=== PATIENT | female | born 1980 | race African-American/Black ===

== ENCOUNTER 2016-07-24 09:43 | Observation (INO) | payer OTHER, MEDICAID ==
[~2016-07-24] VITALS: Ht 157.5 cm; Wt 93.1 kg
[2016-07-24] MEDS ORDERED: BETAMETHASONE 6 MG/ML, 5ML IM ONE (10:21)
[2016-07-24] MEDS ORDERED: PLEASE ENTER HEIGHT AND WEIGHT MC SCH (10:30)
[2016-07-24] MEDS ORDERED: BETAMETHASONE 6 MG/ML, 5ML IM SCH (10:30)
[2016-07-24 10:32] LABS: HEMOGLOBIN 12.9 g/dL (11.7-16.4)
[2016-07-24 10:43] LABS: ASPARTATE AMINO TRANSFERASE 17 U/L (15-37); BLOOD UREA NITROGEN 6 mg/dL (7-18)
[2016-07-24] MEDS ORDERED: LABETALOL 100 MG TABLET ONE (10:48)
[2016-07-24] MEDS ORDERED: LABETALOL 200 MG TABLET PO SCH (11:00)
[2016-07-24] MEDS ORDERED: LABETALOL 5MG/ML, 20ML IVPush ONE (11:00)
== END 2016-07-24 15:17 | disposition home or self-care (01) ==
LOC: LDOP 09:43 → LDIP 09:59
PROVIDERS: ADMIT Obstetrics & Gynecology; ATTEND Obstetrics & Gynecology
DX: O36.8130 Decreased fetal movements, third trimester, not applicable or unspecified (principal); Z3A.32 32 weeks gestation of pregnancy
CPT/HCPCS: 36415; 59025; 76819; 80053; 81001; 82248; 82570; 84156; 84550; 85025; 87086; 96372; G0378; J0702

== ENCOUNTER 2016-07-31 12:45 | Observation (INO) | payer OTHER, MEDICAID ==
[~2016-07-31] VITALS: Ht 157.5 cm; Wt 94.5 kg
[2016-07-31 13:15] VITALS: BP 147/81
[2016-07-31 13:25] LABS: HEMOGLOBIN 12.8 g/dL (11.7-16.4)
[2016-07-31 13:38] LABS: ASPARTATE AMINO TRANSFERASE 12 U/L (15-37); BLOOD UREA NITROGEN 7 mg/dL (7-18)
[2016-07-31] MEDS: LABETALOL 200 MG TABLET PO SCH ×2 (15:30→22:18)
[2016-07-31] MEDS ORDERED: LABETALOL 100 MG TABLET ONE (15:41)
[2016-07-31] MEDS ORDERED: ACETAMINOPHEN 325 MG TABLET ONE (18:22)
[2016-07-31] MEDS ORDERED: ACETAMINOPHEN 325 MG TABLET PO PRN (18:30)
[2016-07-31 22:37] VITALS: BP 158/92
[2016-07-31] MEDS ORDERED: ZOLPIDEM 10MG TABLET ONE (22:54)
[2016-07-31] MEDS ORDERED: ZOLPIDEM 10MG TABLET PO PRN (23:00)
[2016-08-01] MEDS ORDERED: niFEDipine ER 60 MG TABLET.ER PO STA (05:18)
[2016-08-01] MEDS ORDERED: hydrALAzine 20 MG/ML, 1ML ONE (05:27)
[2016-08-01] MEDS ORDERED: hydrALAzine 20 MG/ML, 1ML IV ONE (06:00)
[2016-08-01] MEDS ORDERED: LACTATED RINGERS 500 ML IV SCH (06:00)
[2016-08-01] MEDS: LABETALOL 200 MG TABLET PO SCH ×2 (06:43→13:41)
[2016-08-01 14:00] LABS: HEMOGLOBIN 12.9 g/dL (11.7-16.4)
[2016-08-01 14:04] LABS: ASPARTATE AMINO TRANSFERASE 12 U/L (15-37); BLOOD UREA NITROGEN 6 mg/dL (7-18)
[2016-08-01] MEDS ORDERED: NIFE60TA2 PO ×2 (18:21→18:23)
[2016-08-01] MEDS ORDERED: LABE200T3 PO (18:22)
[2016-08-02] MEDS ORDERED: niFEDipine ER 60 MG TABLET.ER PO SCH (06:00)
== END 2016-08-01 18:25 | disposition home or self-care (01) ==
LOC: LDOP 12:45 → LDIP 15:31
PROVIDERS: ADMIT Obstetrics & Gynecology; ATTEND Obstetrics & Gynecology
DX: O10.913 Unspecified pre-existing hypertension complicating pregnancy, third trimester (principal); O40.3XX0 Polyhydramnios, third trimester, not applicable or unspecified; O09.523 Supervision of elderly multigravida, third trimester; O99.343 Other mental disorders complicating pregnancy, third trimester; F31.9 Bipolar disorder, unspecified; Z3A.33 33 weeks gestation of pregnancy; Z98.890 Other specified postprocedural states
CPT/HCPCS: 36415; 76819; 80053; 81001; 81050; 82248; 82570; 84156; 84550; 85025; 86850; 86900; 87081; 96374; G0378; J0360

== ENCOUNTER 2016-08-08 09:50 | Outpatient (CLI) | payer OTHER, MEDICAID ==
[~2016-08-08] VITALS: Ht 157.5 cm; Wt 95.9 kg
[~2016-08-08 09:50] MED LIST: LABE200T3 PO; NIFE60TA2 PO
[2016-08-08 10:25] VITALS: BP 134/81
[2016-08-08] MEDS ORDERED: PREN1TAB27 PO (10:43)
== END 2016-08-08 11:15 | disposition home or self-care (01) ==
LOC: LDOP 09:50
PROVIDERS: ATTEND Obstetrics & Gynecology
DX: O09.523 Supervision of elderly multigravida, third trimester (principal); O10.913 Unspecified pre-existing hypertension complicating pregnancy, third trimester; O40.3XX0 Polyhydramnios, third trimester, not applicable or unspecified; O99.513 Diseases of the respiratory system complicating pregnancy, third trimester; J45.909 Unspecified asthma, uncomplicated; O99.343 Other mental disorders complicating pregnancy, third trimester; F32.9 Major depressive disorder, single episode, unspecified; Z3A.35 35 weeks gestation of pregnancy
CPT/HCPCS: 59025; 76819; 99211; G0463

== ENCOUNTER 2016-08-16 03:08 | Inpatient (IN) | payer OTHER, MEDICAID ==
[~2016-08-16] VITALS: Ht 157.5 cm; Wt 96.0 kg
[~2016-08-16 03:08] MED LIST changes: +PREN1TAB27 PO
[2016-08-16] MEDS ORDERED: LABETALOL 5MG/ML, 20ML IVPush ONE (03:15)
[2016-08-16] MEDS ORDERED: LABETALOL 100 MG TABLET ONE (03:22)
[2016-08-16 03:46] LABS: HEMOGLOBIN 12.9 g/dL (11.7-16.4)
[2016-08-16 04:00] LABS: BLOOD UREA NITROGEN 8 mg/dL (7-18)
[2016-08-16 04:04] LABS: ASPARTATE AMINO TRANSFERASE 16 U/L (15-37)
[2016-08-16] MEDS ORDERED: OXYTOCIN 30U/ 0.9% NaCL 500ML 500 ML IV ONE (07:36)
[2016-08-16] MEDS ORDERED: OXYTOCIN 30U/ 0.9% NaCL 500ML 500 ML IV PRN (07:36)
[2016-08-16] MEDS ORDERED: D5%-LACTATED RINGERS 1,000 ML IV SCH (07:36)
[2016-08-16] MEDS ORDERED: TERBUTALINE 1 MG/ML, 1ML IVPush PRN (08:00)
[2016-08-16] MEDS ORDERED: FENTANYL PF 100 MCG/2ML IVPush PRN (08:00)
[2016-08-16] MEDS ORDERED: CALCIUM CARBONATE 500 MG TAB.CHEW PO PRN (08:00)
[2016-08-16] MEDS ORDERED: FENTANYL PF 100 MCG/2ML IV PRN ×2 (08:00→14:30)
[2016-08-16] MEDS ORDERED: ONDANSETRON 2MG/ML, 2ML IVPush PRN ×2 (08:00→14:30)
[2016-08-16] MEDS: LACTATED RINGERS 1,000 ML IV SCH ×5 (10:53→22:38)
[2016-08-16] MEDS ORDERED: LACTATED RINGERS 1,000 ML IV SCH (11:26)
[2016-08-16] MEDS ORDERED: FENTANYL/BUPIV./NS/PF 250 ML EPIDCONT SCH (11:26)
[2016-08-16] MEDS ORDERED: LACTATED RINGERS 1,000 ML IVBOLUS PRN (11:30)
[2016-08-16] MEDS ORDERED: LIDOCAINE 1%, 20ML ONE ×2 (11:33→12:52)
[2016-08-16] MEDS ORDERED: MISOPROSTOL 200 MCG TABLET ONE (11:33)
[2016-08-16] MEDS ORDERED: NEWBORN KIT ONE (11:33)
[2016-08-16] MEDS ORDERED: OXYTOCIN 30U/ 0.9% NaCL 500ML 500 ML ONE (11:34)
[2016-08-16] MEDS ORDERED: CLINDAMYCIN PMX 900MG/50ML 50 ML ONE (12:18)
[2016-08-16] MEDS ORDERED: METOCLOPRAMIDE 5 MG/ML, 2ML ONE ×2 (12:22→12:52)
[2016-08-16] MEDS ORDERED: SODIUM CITRATE/CITRIC ACID 30 ML UDC ONE ×2 (12:22→12:52)
[2016-08-16] MEDS ORDERED: SODIUM CITRATE/CITRIC ACID 30 ML UDC PO ONE (12:30)
[2016-08-16] MEDS ORDERED: METOCLOPRAMIDE 5 MG/ML, 2ML IVPush ONE (12:30)
[2016-08-16] MEDS: OXYTOCIN 30U/ 0.9% NaCL 500ML 500 ML IV SCH ×2 (12:38→22:38)
[2016-08-16] MEDS ORDERED: OXYTOCIN 10 UNITS/ML, 1ML ONE (12:52)
[2016-08-16] MEDS ORDERED: ACETAMINOPHEN 325 MG TABLET PO PRN ×2 (13:00)
[2016-08-16] MEDS ORDERED: ONDANSETRON 2MG/ML, 2ML IV PRN (13:00)
[2016-08-16] MEDS ORDERED: OXYcodone/APAP 5/325MG TABLET PO PRN ×2 (13:00)
[2016-08-16] MEDS ORDERED: SIMETHICONE 80 MG CHEW TAB PO PRN (13:00)
[2016-08-16] MEDS ORDERED: MISOPROSTOL 200 MCG TABLET PR PRN (13:00)
[2016-08-16] MEDS ORDERED: IBUPROFEN 600 MG TABLET PO PRN (13:00)
[2016-08-16] MEDS ORDERED: morphine SULFATE 10 MG/ML, 1ML IVPush PRN ×2 (13:00)
[2016-08-16] MEDS ORDERED: CARBOPROST TROMETHAMINE 250 MCG/ML, 1ML IM PRN (13:00)
[2016-08-16] MEDS ORDERED: LABETALOL 100 MG TABLET PO SCH (14:00)
[2016-08-16] MEDS ORDERED: morphine SULFATE 10 MG/ML, 1ML IV PRN (14:30)
[2016-08-16] MEDS ORDERED: LABETALOL 5MG/ML, 20ML IV PRN (14:30)
[2016-08-16] MEDS ORDERED: OXYcodone 5 MG/5 ML ORAL.SOL UDC PO PRN (14:30)
[2016-08-16] MEDS ORDERED: MORPHINE SULFATE 4 MG/ML, 1ML ONE ×2 (14:37→15:14)
[2016-08-16] MEDS ORDERED: OXYcodone 5 MG/5 ML ORAL.SOL UDC ONE (14:37)
[2016-08-16] MEDS: morphine SULFATE 10 MG/ML, 1ML IV PRN ×4 (14:55→15:52)
[2016-08-16] MEDS ORDERED: hydrALAzine 20 MG/ML, 1ML ONE (15:43)
[2016-08-16] MEDS ORDERED: hydrALAzine 20 MG/ML, 1ML IV ONE (16:00)
[2016-08-16] MEDS: LABETALOL 200 MG TABLET PO SCH ×2 (16:09→21:01)
[2016-08-16] MEDS ORDERED: LABETALOL 5MG/ML, 20ML IVPush STA ×3 (16:34→16:54)
[2016-08-16] MEDS ORDERED: HYDROmorphone 1 MG/ML, 1ML ONE ×3 (17:00→23:28)
[2016-08-16] MEDS ORDERED: niFEDipine ER 30 MG TABLET.ER PO SCH (17:00)
[2016-08-16] MEDS: HYDROmorphone 2 MG/ML, 1ML IVPush PRN ×2 (17:04→19:55)
[2016-08-16] MEDS ORDERED: LABETALOL 20 MG/4 ML IVPush STA (18:38)
[2016-08-16] MEDS ORDERED: ONDANSETRON 2MG/ML, 2ML ONE (19:01)
[2016-08-16] MEDS: LABETALOL 20 MG/4 ML IV PRN ×4 (19:09→22:36)
[2016-08-16] MEDS ORDERED: NITROFURANTOIN (MACROBID) 100 MG CAPSULE PO SCH (21:00)
[2016-08-16] MEDS: HYDROmorphone 1 MG/ML, 1ML IV PRN (23:30)
[2016-08-16] MEDS ORDERED: LABETALOL 20 MG/4 ML IVPush PRN (23:30)
[2016-08-17] MEDS: LABETALOL 20 MG/4 ML IV PRN (01:21)
[2016-08-17] MEDS ORDERED: HYDROmorphone 1 MG/ML, 1ML ONE (03:46)
[2016-08-17] MEDS: HYDROmorphone 1 MG/ML, 1ML IV PRN (03:49)
[2016-08-17] MEDS: LACTATED RINGERS 1,000 ML IV SCH ×6 (04:38→20:38)
[2016-08-17 05:46] LABS: HEMOGLOBIN 13.1 g/dL (11.7-16.4)
[2016-08-17] MEDS ORDERED: OXYcodone/APAP 5/325MG TABLET ONE ×3 (05:56→16:15)
[2016-08-17] MEDS ORDERED: IBUPROFEN 600 MG TABLET ONE (05:57)
[2016-08-17] MEDS ORDERED: HYDROcodone/APAP 5/325 TABLET ONE ×2 (06:31→16:38)
[2016-08-17] MEDS: OXYTOCIN 30U/ 0.9% NaCL 500ML 500 ML IV SCH ×2 (08:38→18:38)
[2016-08-17] MEDS: PRENATAL VIT/IRON/FA 1 EACH TABLET PO SCH (09:00)
[2016-08-17] MEDS: LABETALOL 200 MG TABLET PO SCH ×3 (09:21→22:35)
[2016-08-17] MEDS: HYDROcodone/APAP 5/325 TABLET PO PRN ×2 (16:52→20:42)
[2016-08-17] MEDS ORDERED: HYDROcodone/APAP 5/325 TABLET PO PRN (17:00)
[2016-08-17 17:30] VITALS: BP 144/93
[2016-08-17] MEDS: niFEDipine ER 30 MG TABLET.ER PO SCH (18:22)
[2016-08-17] MEDS: DOCUSATE 100 MG CAPSULE PO PRN (20:42)
[2016-08-17 21:00] VITALS: BP 147/86
[2016-08-17] MEDS ORDERED: LABETALOL 100 MG TABLET ONE (21:58)
[2016-08-17 22:10] VITALS: BP 143/86
[2016-08-18] MEDS: HYDROcodone/APAP 5/325 TABLET PO PRN ×6 (01:15→22:31)
[2016-08-18] MEDS: HYDROmorphone 1 MG/ML, 1ML IV PRN (01:47)
[2016-08-18 02:30] VITALS: BP 140/77
[2016-08-18 06:07] VITALS: BP 156/98
[2016-08-18] MEDS: LABETALOL 200 MG TABLET PO SCH ×3 (06:08→22:30)
[2016-08-18] MEDS: PRENATAL VIT/IRON/FA 1 EACH TABLET PO SCH (08:51)
[2016-08-18] MEDS ORDERED: HYDROCORTISONE 25 MG SUPP PR PRN (09:00)
[2016-08-18] MEDS ORDERED: HYDROCORTISONE CRM 0.025, 30GM RC PRN (09:00)
[2016-08-18] MEDS: DOCUSATE 100 MG CAPSULE PO PRN ×2 (10:03→22:30)
[2016-08-18 13:03] VITALS: BP_SYST 169; BP_DIAS 104; BP_DIAS 107
[2016-08-18 16:00] VITALS: BP 145/93
[2016-08-18] MEDS ORDERED: niFEDipine ER 30 MG TABLET.ER PO SCH ×2 (17:00→18:00)
[2016-08-18] MEDS: niFEDipine ER 30 MG TABLET.ER PO SCH (18:15)
[2016-08-18 21:05] VITALS: BP 153/94
[2016-08-18 22:30] VITALS: BP 132/83
[2016-08-19 03:20] VITALS: BP 149/91
[2016-08-19] MEDS: HYDROcodone/APAP 5/325 TABLET PO PRN ×5 (03:24→21:18)
[2016-08-19 06:20] VITALS: BP 152/79
[2016-08-19] MEDS: LABETALOL 200 MG TABLET PO SCH ×3 (06:23→21:18)
[2016-08-19 07:45] VITALS: BP 145/93
[2016-08-19] MEDS: PRENATAL VIT/IRON/FA 1 EACH TABLET PO SCH (09:00)
[2016-08-19 12:00] VITALS: BP 146/85
[2016-08-19] MEDS: DOCUSATE 100 MG CAPSULE PO PRN ×2 (12:34→21:18)
[2016-08-19] MEDS ORDERED: niFEDipine ER 60 MG TABLET.ER PO SCH (18:00)
[2016-08-19 19:02] VITALS: BP 150/99
[2016-08-19 23:41] VITALS: BP 122/77
[2016-08-20] MEDS: HYDROcodone/APAP 5/325 TABLET PO PRN ×4 (03:18→14:26)
[2016-08-20 03:36] VITALS: BP 145/96
[2016-08-20] MEDS: LABETALOL 200 MG TABLET PO SCH ×2 (06:16→14:12)
[2016-08-20] MEDS: DOCUSATE 100 MG CAPSULE PO PRN (08:02)
[2016-08-20] MEDS: PRENATAL VIT/IRON/FA 1 EACH TABLET PO SCH (09:00)
[2016-08-20] MEDS ORDERED: SENN1TAB5 PO (17:55)
[2016-08-20] MEDS ORDERED: IBUP-1222 PO (17:55)
[2016-08-20] MEDS ORDERED: HYDR-3240 PO (17:57)
== END 2016-08-20 19:28 | disposition home or self-care (01) | DRG 765 ==
LOC: LDOP 03:08 → 2NE 06:29 → LDIP 10:42 → 2NE 18:27 → 2NW 08-17 20:34
PROVIDERS: ADMIT Obstetrics & Gynecology; ATTEND Obstetrics & Gynecology
PROC: 0T9B70Z Drainage of Bladder with Drainage Device, Via Natural or Artificial Opening (ICD-10-PCS; principal; 2016-08-16)
PROC: 10D00Z1 Extraction of Products of Conception, Low, Open Approach (ICD-10-PCS; 2016-08-16)
DX: O76 Abnormality in fetal heart rate and rhythm complicating labor and delivery (principal); O60.14X0 Preterm labor third trimester with preterm delivery third trimester, not applicable or unspecified; O10.02 Pre-existing essential hypertension complicating childbirth; O99.62 Diseases of the digestive system complicating childbirth; K42.9 Umbilical hernia without obstruction or gangrene; Z37.0 Single live birth; Z3A.36 36 weeks gestation of pregnancy; O09.523 Supervision of elderly multigravida, third trimester; Z88.0 Allergy status to penicillin; Z88.8 Allergy status to other drugs, medicaments and biological substances
CPT/HCPCS: 36415; 76705; 80053; 81001; 82803; 84550; 85025; 86850; 86900; 88307; J1170; J2405; J3490; J0360; J2270; J2590; J2765; J3105; J7120

== ENCOUNTER 2016-08-22 02:19 | Emergency (ER) | payer OTHER, MEDICAID ==
[~2016-08-22] VITALS: Ht 157.5 cm; Wt 90.0 kg
[~2016-08-22 02:19] MED LIST changes: +HYDR-3240 PO; +IBUP-1222 PO; +SENN1TAB5 PO
[2016-08-22 02:21] VITALS: BP 167/97
[2016-08-22] MEDS ORDERED: KETOROLAC 30 MG/1 ML IVPush ONE (03:00)
[2016-08-22] MEDS ORDERED: SODIUM CHLORIDE FLUSH 10ML SYR IVF ONE (03:00)
[2016-08-22] MEDS ORDERED: SODIUM CHLORIDE 0.9% 1,000ML IVBOLUS ONE (03:00)
[2016-08-22 03:19] LABS: ASPARTATE AMINO TRANSFERASE 17 U/L (15-37); BLOOD UREA NITROGEN 12 mg/dL (7-18)
== END 2016-08-22 03:45 | disposition left against medical advice (07) ==
LOC: ED 02:38
DX: R10.32 Left lower quadrant pain (principal); I10 Essential (primary) hypertension
CPT/HCPCS: 36415; 80053; 85025; 99284

== ENCOUNTER 2017-12-13 14:16 | Emergency (ER) | payer MEDICAID, OTHER ==
[~2017-12-13] VITALS: Ht 157.5 cm; Wt 78.5 kg
[~2017-12-13 14:16] MED LIST changes: -LABE200T3 PO; +LABE200T6 PO; +SENN-52 PO; -SENN1TAB5 PO
[2017-12-13 14:38] VITALS: BP 150/94
[2017-12-13] MEDS ORDERED: IBUPROFEN 200 MG TABLET ONE (14:57)
[2017-12-13] MEDS ORDERED: IBUPROFEN 200 MG TABLET PO ONE (15:00)
== END 2017-12-13 15:11 | disposition home or self-care (01) ==
LOC: ED 15:00
DX: M67.432 Ganglion, left wrist (principal); I10 Essential (primary) hypertension
CPT/HCPCS: 29260; 99283